=== PATIENT | female | born 1965 | race African-American/Black ===

== ENCOUNTER 2016-05-04 09:01 | Observation (INO) | payer OTHER ==
[2016-04-26 11:21] LABS: HEMATOCRIT 40.8 % (36.0-48.0); HEMOGLOBIN 13.7 g/dL (12.0-16.0)
[2016-04-26 11:35] LABS: BUN (BLOOD UREA NITROGEN) 13 MG/DL (6-23); CALCIUM, SERUM 8.4 MG/DL (8.5-10.4); CHLORIDE, SERUM 105 MMOL/L (96-112); CO2 (CARBON DIOXIDE) 29 MMOL/L (24-34); CREATININE 0.79 MG/DL (0.55-1.02); GFR AFRICAN AMERICAN 102 ML/MIN (>=60); GFR NON AFRICAN AMERICAN 88 ML/MIN (>=60); SODIUM, SERUM 141 MMOL/L (135-148)
[2016-04-26 12:03] LABS: GLUCOSE, SERUM 222 MG/DL (60-99); POTASSIUM, SERUM 4.1 MMOL/L (3.5-5.3)
--- NOTE | ~2016-05-04 | PREOPHP ---
PreOp History and Physical [id number] [place]. [address] NAME: ELENITA SWANN : 67 STATUS : REG [facility]#: [id number] AGE: 50 ADM/REG DATE : 05/04/16 MR#: [id number] REPORT SERV DATE: 05/04/16 DICTATED BY: LONDON NOONAN DATE: 05/04/16 REPORT STATUS : Draft TRANSCRIBED BY: LAMOTN DATE: 05/04/16 CHIEF COMPLAINT: Neck pain with bilateral upper extremity pain to the elbows. HISTORY OF PRESENT ILLNESS: The patient is a 50-year-old female with intractable neck and upper extremity pain. She states that, her pain began on 10/14/2015 with a work-related injury. She failed multiple attempts at conservative treatment including medications, physical therapy. She also has signs of progressive cervical myelopathy. After discussion of risks and benefits, the patient elected to proceed with surgical intervention. REVIEW OF SYSTEMS: She denies chest pain, shortness of breath, and bowel or bladder changes. ALLERGIES: DENIED. HOME MEDICATIONS: Flexeril and naproxen. FAMILY HISTORY: Noncontributory. PAST MEDICAL HISTORY: Diabetes. PHYSICAL EXAMINATION: VITAL SIGNS: Height 5 feet 6 inches, weight 225, BMI 36.3. GENERAL: The patient is healthy appearing. No acute distress. PSYCH: Alert and oriented x3. Normal mood and affect. Gait is within normal limits. VASCULAR: No extremity swelling. SPINE: Decreased cervical motion. NEUROLOGIC: Positive Spurling sign bilaterally. She has 5/5 motor strength. No focal deficits. HEART: Regular rate and rhythm. LUNGS: Clear to auscultation. ABDOMEN: Soft, nontender, nondistended. Good bowel sounds. BREASTS AND RECTAL: Both deferred. IMAGING: I have reviewed the MRI scan. She does have C3-C6 disk disease and stenosis with both spinal cord and nerve root compression. ASSESSMENT: C3-C6 disk disease and stenosis, spinal cord compression, worsening signs of cervical myelopathy, failed conservative treatment. PLAN: After discussion of risks and benefits, and progressive neurologic decline, the patient elects to proceed with surgical intervention. Consent was obtained. All questions answered. She is ready to proceed with surgery. QUENTIN/LAMONT PreOp History and Physical [address] [place]. [address] NAME: ELENITA SWANN : 67 STATUS : REG [facility] PAT#: [id number] AGE: 50 ADM/REG DATE : 05/04/16 MR#: [id number] REPORT SERV DATE: 05/04/16 DICTATED BY: LONDON NOONAN DATE: 05/04/16 REPORT STATUS : Draft TRANSCRIBED BY: LAMONT DATE: 05/04/16 London Noonan DO / [id number] CC: London Noonan DO
--- NOTE | ~2016-05-04 | CN ---
Consultation Report [facility] [address] [place]. [address] NAME: ELENITA SWANN : 67 STATUS : ADM Reynaldo PAT#: [id number] AGE: 50 ADM/REG DATE : 05/04/16 MR#: [id number] REPORT SERV DATE: 05/04/16 DICTATED BY: WINIFRED DANIELLE DATE: 05/04/16 REPORT STATUS : Draft TRANSCRIBED BY: MODL DATE: 05/04/16 CONSULTATION DATE OF CONSULTATION: 05/04/2016 REASON FOR CONSULTATION: Consulted for diabetes management. IDENTIFYING DATA: 1. PCP is [facility] in [place]. 2. Surgeon, previously Ghassan Aquino M.D. for her thyroidectomy. 3. Orthopedist London Arredondo, DO. HISTORY OF PRESENT ILLNESS: This is a pleasant 50-year-old female with a history of diabetes type 2 for 15 years, history of thyroidectomy, history of high cholesterol, and back pain with spinal stenosis. She presents to Dr. Arredondo with intractable neck pain with bilateral upper extremity pain to her elbow with signs of progressive cervical myelopathy that failed conservative treatment with medications and physical therapy so she opts for surgery which she is status post anterior cervical diskectomy and fusion of C3-4, C4-5, C5-6 on 05/04/2016. We have been consulted to help manage her blood sugars. She was on an insulin drip while she was in surgery, and she is off an insulin drip on my assessment of her. The patient's history was obtained through interview with the patient, her family coupled with [facility], foreign legal consultant's notes and old medical records. PAST MEDICAL HISTORY: 1. Sinusitis. 2. Presbyopia. 3. Back pain with spinal stenosis. 4. Endometriosis. 5. Depression. 6. Palpitations. 7. Thyroid goiter. 8. High cholesterol. 9. Diabetes type 2 for 15 years. HOME MEDICATIONS: 1. Aspirin 81 mg p.o. daily. 2. Flexeril 10 mg p.o. three times daily. 3. Humalog with a sliding scale, she utilizes at home. 4. Synthroid 200 mcg p.o. daily. 5. Glucophage 500 mg p.o. with breakfast and supper. 6. Naproxen 500 mg p.o. every 12 hours. 7. Crestor 10 mg p.o. at bedtime. 8. Ultram 50 mg p.o. every four hours p.r.n. as needed for pain. Consultation Report [id number] [place]. [address] NAME: ELENITA SWANN : 67 STATUS : ADM Reynaldo PAT#: [id number] AGE: 50 ADM/REG DATE : 05/04/16 MR#: [id number] REPORT SERV DATE: 05/04/16 DICTATED BY: WINIFRED DANIELLE DATE: 05/04/16 REPORT STATUS : Draft TRANSCRIBED BY: LAMONT DATE: 05/04/16 ALLERGIES: NO KNOWN ALLERGIES. SOCIAL HISTORY: The patient is single, has two grown sons, for which she lives with one of her sons. Previous smoker of 20 years, quit two weeks ago. Lives in a multilevel home but has no difficulty in daily activities around her home. Alcohol rare with occasional use of wine. FAMILY HISTORY: Father had diabetes. Mother had hypertension, CVA, and an RI. Sister is diabetic. Brother has diabetes and hypertension. There are four siblings in the family; three girls and one boy. SURGICAL HISTORY: 1. Thyroidectomy 07/12/2011. 2. Cardiac cath with stress test in 2011 at [facility]. She does not remember who the three dimensional map modeler was. 3. Partial hysterectomy in 2006. REVIEW OF SYSTEMS: Negative other than what is in HPI. She has no shortness of breath. No nausea, vomiting. No chest pain. No fever. No abdominal pain. No agitation or confusion. PHYSICAL EXAMINATION: VITAL SIGNS: From today blood pressure 126/66, heart rate 98, respiratory rate 16, O2 saturation 99% on 2 L nasal cannula. GENERAL: This is a 50-year-old obese female, resting in bed. She does have complaints of neck pain postoperatively. She will be receiving a COMPLIANCE TECHNICIAN with morphine as well as p.r.n. Percocet for pain. NEURO: Her head is atraumatic, normocephalic. She is alert and oriented x3. Her cranial nerves 2-12 are grossly intact. Her mood is appropriate. NECK: Supple. Trachea is midline. No JVD. She has a cervical collar in place with TRACEY drain compressed with sanguinous drainage noted at the anterior area of her neck. EENT: Sclerae are nonicteric. Pupils are equal and reactive to light. Her nares are patent. Her mucous membranes moist. Her tongue is midline without deviation. Her soft palate rises equally with phonation. CHEST: No pain with palpation. LUNGS: Clear to auscultation bilaterally. She has normal respiratory effort. No increased work of breathing with conversation. O2 saturation 98% on 2 L nasal cannula. CARDIOVASCULAR: S1, S2. No obvious murmurs, rubs, or gallops. She is on defensive monitoring. She is running a sinus tachycardia with a rate of 104. ABDOMEN: Soft, nontender, with active bowel sounds. No palpable organomegaly. Her last bowel movement was on 05/03/2016. EXTREMITIES: Normal distal pulses. No calf tenderness. No edema. She has bilateral TEDs and SCDs in place for DVT prophylaxis. Consultation Report [address] [place]. [address] NAME: ELENITA SWANN : 67 STATUS : ADM Reynaldo PAT#: [id number] AGE: 50 ADM/REG DATE : 05/04/16 MR#: [id number] REPORT SERV DATE: 05/04/16 DICTATED BY: WINIFRED DANIELLE DATE: 05/04/16 REPORT STATUS : Draft TRANSCRIBED BY: LAMONT DATE: 05/04/16 SKIN: Warm and dry. No unusual rashes or lesions. Normal color and turgor. PSYCH: The patient is pleasant and cooperative. She is somewhat sleepy postoperatively, has appropriate mood and affect. LABORATORY DATA: Sodium 141, potassium 4.1, chloride 105, BUN 13, creatinine 0.79, GFR 102, glucose 222. Calcium 8.4, hemoglobin 13.7, hematocrit 40.8. Her blood sugars from today were 222, 165, 213, and presently 276. She had an EKG done today on 05/04/2016 that showed a sinus tachycardia with a rate of 105. ASSESSMENT AND PLAN: 1. Diabetes type 2. The patient has been diabetic for approximately 15 years. She states she checks her blood sugars three to four times a day but she has averaged a blood sugar at times of 300 when it is high she states. We will need to contact for clinical informatics educator to see her regarding diet and glucose monitoring at home. Fingerstick blood sugars are a.c. and h.s., and we will check one at 2 a.m. this morning. We will put her on a sliding scale insulin level 2. We will initiate Levemir 10 units subcu every p.m. and hold the metformin. We will need to check a hemoglobin A1c in the morning. She does not really have a primary care physician. She goes to [facility] for her healthcare. 2. Hypothyroidism. She has a history of a thyroidectomy. Aware. We will continue her Synthroid 200 mcg daily and check a TSH in the morning. 3. Hypercholesterolemia. Aware. We will continue her Crestor. 4. Postop pain from her status post anterior cervical diskectomy and fusion. Aware. We will continue her p.r.n. pain medication as noted by Dr. Arredondo which is COMPLIANCE TECHNICIAN morphine, p.r.n. Percocet. We will hold Naprosyn, aspirin, and Ultram, and we will need to initiate continuous O2 saturation monitoring while she is on a COMPLIANCE TECHNICIAN. Labs at a.m. to be obtained; BMP, magnesium, phosphorus, CBC, hemoglobin A1c, TSH, and we will initiate the electrolyte protocol for electrolyte replacement. The hospitalist group would like to thank you for this consultation. Please let us know if we can be of any further assistance. TRACEY Winifred Danielle NP / [id number] CC: London Arredondo DO
--- NOTE | ~2016-05-04 | OP ---
Record Of Operation [facility] [address] [place]. [address] NAME: ELENITA SWANN : 67 STATUS : ADM Reynaldo PAT#: [id number] AGE: 50 ADM/REG DATE : 05/04/16 MR#: [id number] REPORT SERV DATE: 05/04/16 DICTATED BY: LONDON NOONAN DATE: 05/04/16 REPORT STATUS : Draft TRANSCRIBED BY: MODL DATE: 05/04/16 DATE OF PROCEDURE: 05/04/2016 POSTOPERATIVE DIAGNOSIS: C3 through C6 disk disease and stenosis with spinal cord compression, and cervical myelopathy. POSTOPERATIVE DIAGNOSIS: C3 through C6 disk disease and stenosis with spinal cord compression, and cervical myelopathy. PROCEDURE: 1. Anterior cervical diskectomy and fusion, C3-4, C4-5, C5-6. 2. Placement of Medtronic PEEK interbody spacer, C3-4, C4-5, C5-6. 3. Anterior cervical plate from Medtronic, C3 through C6. 4. Allograft bone matrix. 5. Operative microscope. 6. Neuromonitoring. SURGEON: London Noonan DO. ANESTHESIA: General. ESTIMATED BLOOD LOSS: 30 mL. COMPLICATIONS: None. INDICATIONS: The patient is a pleasant 50-year-old, with intractable neck and arm pain, with progressive signs of myelopathy, due to spinal cord compression. After discussion of risks and benefits, she elected to proceed with surgery. PROCEDURE IN DETAIL: At This Point, patient was taken to the operating room, underwent general anesthesia with endotracheal intubation, prepped and draped in the usual sterile fashion, operative safety pause was performed, and then we proceeded. An oblique incision was made over the left side neck and taken through the platysma down to the anterior aspect of the spine. Longus colli was elevated. Self-retaining retractors were placed. Ely pin was placed and verified operative level with lateral fluoroscopic image. Distraction was applied across the C3-C4 level. Operative microscope was brought in. A knife was used to perform an annulotomy. Free disk material was removed with pituitary. Anterior osteophytes were removed with Kerrison. Posterior osteophytes and uncinate processes were taken down with a gilda bur. Foraminotomies were performed with a Kerrison. Endplates were prepared with curettes, rasp, and a cutting bur. Trial spacers implanted with a [employer] PEEK interbody spacer with allograft bone matrix placed at C3-C4. This was repeated again at C4-5, C5-6, and C6-C7. Anterior cervical plate then was placed from C3 through C6 from Medtronic. Screws were placed, final tightened. Locking mechanisms were engaged. Final AP and lateral fluoroscopic images were obtained. Hemostasis was achieved. A subplatysmal drain was placed. Layered closure was performed. Sterile dressings were applied. The patient awoke,extubated and taken recovery room in stable condition. Record Of Operation [address] [address] NAME: ELENITA SWANN : 67 STATUS : ADM Reynaldo PAT#: [id number] AGE: 50 ADM/REG DATE : 05/04/16 MR#: [id number] REPORT SERV DATE: 05/04/16 DICTATED BY: LONDON NOONAN DATE: 05/04/16 REPORT STATUS : Draft TRANSCRIBED BY: MODL DATE: 05/04/16 OPERATIVE FINDINGS: C3 through C6 disk disease and severe stenosis with spinal cord compression. No sustained neuromonitoring alerts. QUENTIN/RADHAL London Noonan DO / [id number] CC: London Noonan DO
[~2016-05-04 09:01] MED LIST: ALEVE220 MG PO; ASAB PO; CLARIT10 PO; CRESTOR10 PO; FLEX PO; FLONASE NAS; GLUCOTRO10 PO; GLUCPH PO; HUMALOGPEN SC; LANTUS SC; NAP500 PO; ONGLYZA5 MG PO; SYNTHROID200 MCG PO; ULTRAM50 PO
[2016-05-05 05:14] LABS: BASOPHILS 0 %; EOSINOPHILS 0 %; HEMATOCRIT 37.6 % (36.0-48.0); IMMATURE GRANULOCYTES 0.4 %; IMMATURE GRANULOCYTES ABSOLUTE 0.04 10/3/uL (0.0-0.11); LYMPHOCYTES 11.1 %; LYMPHOCYTES ABSOLUTE 1.13 10/3/uL (0.67-4.30); MEAN CORPUS HGB CONC 34.6 g/dL (32.0-36.0); MEAN CORPUSCULAR HEMOGLOB 30.2 pg (26.0-34.0); MEAN CORPUSCULAR VOLUME 87.2 fL (80-100); MEAN PLATELET VOLUME 11.3 fL (9.2-13.0); MONOCYTES 3.9 %; NEUTROPHILS 84.6 %; NEUTROPHILS ABSOLUTE 8.59 10/3/uL (2.02-8.40); PLATELET COUNT 222 10/3/uL (150-400); RBC DISTRIBUTION WIDTH 14.2 % (12.0-16.0); RED CELL COUNT 4.31 10/6/uL (4.0-5.6)
[2016-05-05 05:16] LABS: MANUAL DIFF NO %; WHITE BLOOD CELLS 10.2 10/3/uL (4.5-10.5)
[2016-05-05 05:39] LABS: CALCIUM, SERUM 8.1 MG/DL (8.5-10.4); CHLORIDE, SERUM 104 MMOL/L (96-112); CO2 (CARBON DIOXIDE) 26 MMOL/L (24-34); CREATININE 0.92 MG/DL (0.55-1.02); GFR AFRICAN AMERICAN 85 ML/MIN (>=60); GFR NON AFRICAN AMERICAN 73 ML/MIN (>=60); GLUCOSE, SERUM 213 MG/DL (60-99); PHOSPHORUS, SERUM 2.9 MG/DL (2.5-4.5); POTASSIUM, SERUM 3.8 MMOL/L (3.5-5.3); SODIUM, SERUM 141 MMOL/L (135-148)
[2016-05-05 05:41] LABS: BUN (BLOOD UREA NITROGEN) 9 MG/DL (6-23)
[2016-05-05] MEDS ORDERED: PCET PO ×2 (09:25→17:14)
[2016-05-05] MEDS ORDERED: FLEX PO ×2 (09:26→17:14)
[2016-05-05] MEDS ORDERED: HUMALOG KW200 UNIT/1 (17:14)
[2016-05-05] MEDS ORDERED: LEVEMFLXPN SC (17:15)
== END 2016-05-05 18:03 | disposition home or self-care (01) ==
LOC: SDC 09:01 → SDC/OF 15:06 → 3SO 17:16
PROVIDERS: Nurse Practitioner Family; Orthopaedic Surgery
PROC: 0RG20K0 Fusion of 2 or more Cervical Vertebral Joints with Nonautologous Tissue Substitute, Anterior Approach, Anterior Column, Open Approach (ICD-10-PCS; 2016-05-04)
PROC: 0RG10J0 Fusion of Cervical Vertebral Joint with Synthetic Substitute, Anterior Approach, Anterior Column, Open Approach (ICD-10-PCS; 2016-05-04)
PROC: 0RB30ZZ Excision of Cervical Vertebral Disc, Open Approach (ICD-10-PCS; 2016-05-04)
PROC: 0RG20A0 Fusion of 2 or more Cervical Vertebral Joints with Interbody Fusion Device, Anterior Approach, Anterior Column, Open Approach (ICD-10-PCS; principal; 2016-05-04 11:45)
DX: M48.02 Spinal stenosis, cervical region (principal); M50.01 Cervical disc disorder with myelopathy, high cervical region; M50.021 Cervical disc disorder at C4-C5 level with myelopathy; M50.022 Cervical disc disorder at C5-C6 level with myelopathy; G95.20 Unspecified cord compression; E11.9 Type 2 diabetes mellitus without complications; J32.9 Chronic sinusitis, unspecified; F32.9 Major depressive disorder, single episode, unspecified; E04.9 Nontoxic goiter, unspecified; E78.00 Pure hypercholesterolemia, unspecified; E89.0 Postprocedural hypothyroidism; G89.18 Other acute postprocedural pain; E78.5 Hyperlipidemia, unspecified; K21.9 Gastro-esophageal reflux disease without esophagitis; Z79.82 Long term (current) use of aspirin; Z79.899 Other long term (current) drug therapy; Z87.891 Personal history of nicotine dependence; Z83.3 Family history of diabetes mellitus; Z82.49 Family history of ischemic heart disease and other diseases of the circulatory system; Z82.3 Family history of stroke; Z90.711 Acquired absence of uterus with remaining cervical stump; Z98.890 Other specified postprocedural states
CPT/HCPCS: 80048; 82962; 83036; 83735; 84100; 84443; 85014; 85018; 85025; 87641; 88304; 88311; 93005; 96374; 96375; 96376; 97116-GP; 97161-GP; A9270-GY; C1713; G0378; J0360; J0690; J2250; J2405; J2710; J3010; P9045